=== PATIENT | female | born 1985 | race African-American/Black ===

== ENCOUNTER 2016-10-03 08:14 | Emergency (ER) | payer OTHER ==
[~2016-10-03] VITALS: Ht 165.1 cm; Wt 85.0 kg
[~2016-10-03 08:14] MED LIST: FLAG500T PO; IBUP600T26 PO; LEVA500T PO
[2016-10-03 08:18] VITALS: BP 118/80; PULSE 82; RESP 16; TEMP 98.2; O2SAT 100
[2016-10-03] MEDS ORDERED: SODIUM CHLOR 0.9% 1000 ML INJ 1,000 ML IV SCH (08:38)
[2016-10-03 08:40] VITALS: O2SAT 98
[2016-10-03] MEDS ORDERED: SODIUM CHLORIDE 0.9% FLUSH 5 ML FLUSH IVF PRN (08:45)
--- NOTE | 2016-10-03 08:45 | PD ---
HPI Chief Complaint: Chest Pain Time Seen by Provider: 08:26 Travel History International Travel<30 days: No Contact w/Intl Traveler<30days: No Traveled to known affect area: No History of Present Illness HPI Is a 31-year-old woman who presents to the emergency department complaining of chest pain is ongoing on and off for the past 6 days. States symptoms come and go, lasting about 30 minutes to a couple hours. She feels in the chest radiating to the right shoulder blade in the right arm. No recent upper respiratory infections. She'll the coughing this morning. She did not really notice an association with eating. No associated exertion. States she walks a couple miles every day and has not had any trouble with her exercise tolerance. No nausea or vomiting. No history of DVT or PE. No leg swelling. No history of heart or lung problems. States she had a heart murmur when she was little but hasn't heard anything about it since. Does have significant abdominal surgical history including a hysterectomy after uterine prolapse during delivery, followed by appendectomy. No other complaints. History Past Medical History Narrative Medical History of appendectomy, hysterectomy Tetanus Vaccination: < 5 Years Influenza Vaccination: Yes Menopausal: No : 2 Para: 2 Social History Alcohol Use: Yes (on occasion) Tobacco Use: No Allergies-Medications (Allergen,Severity, Reaction): Coded Allergies: Cipro (Unverified Allergy, Severe, 10/03/16) Reported Meds & Prescriptions Reported Meds & Active Scripts Active No Active Prescriptions or Reported Medications Review of Systems Except as stated in HPI: all other systems reviewed are Neg Physical Exam Narrative GENERAL: Well-appearing 31-year-old woman, no acute distress. SKIN: Warm and dry. HEAD: Atraumatic. Normocephalic. CARDIOVASCULAR: Regular rate and rhythm. No murmur appreciated. RESPIRATORY: No accessory muscle use. Clear to auscultation. Breath sounds equal bilaterally. GASTROINTESTINAL: Abdomen is obese, soft, with some epigastric/right upper quadrant tenderness and positive Neville sign. MUSCULOSKELETAL: No obvious deformities. No edema. NEUROLOGICAL: Awake and alert. No obvious cranial nerve deficits. Motor grossly within normal limits. Normal speech. PSYCHIATRIC: Appropriate mood and affect; insight and judgment normal. Data Data Last Documented VS Vital Signs Date Time Temp Pulse Resp B/P Pulse Ox O2 Delivery O2 Flow Rate FiO2 10/03/16 08:40 98 Room Air 10/03/16 08:27 78 20 10/03/16 08:18 98.2 118/80 Orders Electrocardiogram (10/03/16 ) Complete Blood Count With Diff (10/03/16 08:38) Comprehensive Metabolic Panel (10/03/16 08:38) Lipase (10/03/16 08:38) Us Abdomen Gallbladder (10/03/16 ) Iv Access Insert/Monitor (10/03/16 08:38) Ecg Monitoring (10/03/16 08:38) Oximetry (10/03/16 08:38) NPO (10/03/16 08:38) Sodium Chlor 0.9% 1000 Ml Inj (Ns 1000 M (10/03/16 08:38) Sodium Chloride 0.9% Flush (Ns Flush) (10/03/16 08:45) Chest, Single Ap (10/03/16 ) Labs Laboratory Tests Test 10/03/16 08:43 White Blood Count 7.2 TH/MM3 Red Blood Count 4.64 MIL/MM3 Hemoglobin 12.7 GM/DL Hematocrit 37.5 % Mean Corpuscular Volume 80.8 FL Mean Corpuscular Hemoglobin 27.4 PG Mean Corpuscular Hemoglobin 34.0 % Concent Red Cell Distribution Width 13.1 % Platelet Count 194 TH/MM3 Mean Platelet Volume 10.5 FL Neutrophils (%) (Auto) 68.4 % Lymphocytes (%) (Auto) 19.4 % Monocytes (%) (Auto) 8.2 % Eosinophils (%) (Auto) 3.5 % Basophils (%) (Auto) 0.5 % Neutrophils # (Auto) 4.9 TH/MM3 Lymphocytes # (Auto) 1.4 TH/MM3 Monocytes # (Auto) 0.6 TH/MM3 Eosinophils # (Auto) 0.3 TH/MM3 Basophils # (Auto) 0.0 TH/MM3 CBC Comment DIFF FINAL Differential Comment Sodium Level 140 MEQ/L Potassium Level 4.2 MEQ/L Chloride Level 105 MEQ/L Carbon Dioxide Level 25.7 MEQ/L Anion Gap 9 MEQ/L Blood Urea Nitrogen 10 MG/DL Creatinine 0.91 MG/DL Estimat Glomerular Filtration 87 ML/MIN Rate Random Glucose 97 MG/DL Calcium Level 8.4 MG/DL Total Bilirubin 0.3 MG/DL Aspartate Amino Transf 20 U/L (AST/SGOT) Alanine Aminotransferase 18 U/L (ALT/SGPT) Alkaline Phosphatase 80 U/L Total Protein 7.2 GM/DL Albumin 3.6 GM/DL Lipase 226 U/L [facility] Medical Decision Making Medical Screen Exam Complete: Yes Emergency Medical Condition: Yes Interpretation(s) My review of EKG: Normal sinus rhythm at a rate of 75, normal axis, normal pulse , no ischemia. LABS: CBC unremarkable. CMP unremarkable. Lipase normal. Chest x-ray negative Gallbladder ultrasound negative Differential Diagnosis Cholecystitis, cholelithiasis, PE, ACS, pancreatitis, other Narrative Course Medical decision making INITIAL: 31-year-old woman with chest pain rating to the right shoulder blade intermittently lasting 30 minutes to a couple hours for the past week or so. She has not noticed a clear association with eating but in retrospect did eat at a potluck last night and thinks it may be more fatty foods. She has right upper quadrant tenderness with a positive Neville's and a history suggestive of cholecystitis. We'll check ultrasound, labs, chest x-ray, EKG, reassess. FINAL: Workups unremarkable. Epigastric tenderness suggest probably gastritis. Still possible biliary colic. No evidence of heart or lung disease. We'll do a trial of ranitidine, outpatient follow-up. Diagnosis Primary Impression: Chest pain Qualified Code: R07.9 - Chest pain, unspecified type Additional Impression: Gastritis Qualified Code: K29.00 - Acute gastritis without hemorrhage, unspecified gastritis type Additional Instructions: Take ranitidine as prescribed. Follow-up with her primary doctor in 5-7 days. Return to the emergency department for any worsening chest pain or trouble breathing. Med/Other Pt SpecificInfo: Prescription(s) given Scripts Ranitidine 150 Mg Msh538 Mg PO BID #60 CAP Prov:Nehemiah Hunt MD 10/03/16 Disposition: 01 DISCHARGE HOME Condition: Stable Nehemiah Hunt MD Oct 03, 2016 08:45
[2016-10-03 08:53] LABS: AUTOMATED NEUTROPHIL # 4.9 TH/MM3 (1.8-7.7); BASOPHIL % 0.5 % (0.0-2.0); EOSINOPHIL # 0.3 TH/MM3 (0-0.4); EOSINOPHIL % 3.5 % (0.0-4.0); HEMATOCRIT 37.5 % (35.0-46.0); HEMO FLAGS DIFF FINAL; LYMPH % 19.4 % (9.0-44.0); LYMPHOCYTE # 1.4 TH/MM3 (1.0-4.8); MEAN CELL VOLUME 80.8 FL (80.0-100.0); MEAN CORPUSCULAR HEMOGLOBIN 27.4 PG (27.0-34.0); MONO % 8.2 % (0.0-8.0); NEUT % 68.4 % (16.0-70.0); PLATELET COUNT 194 TH/MM3 (150-450); RED BLOOD COUNT 4.64 MIL/MM3 (4.00-5.30); RED CELL DISTRIBUTION WIDTH 13.1 % (11.6-17.2); WHITE BLOOD COUNT 7.2 TH/MM3 (4.0-11.0)
--- NOTE | 2016-10-03 08:56 | RADRPT ---
EXAM DATE/TIME: 10/03/2016 08:50 [facility] COMPARISON: No previous studies available for comparison. INDICATIONS : Chest pain, short of breath MEDICAL HISTORY : None. SURGICAL HISTORY : None. ENCOUNTER: Initial ACUITY: 4 - 6 days PAIN SCORE: 3/10 LOCATION: Bilateral chest FINDINGS: Portable AP view of the chest demonstrates a normal-sized cardiac silhouette. No effusion, consolidat ion, or pneumothorax is visualized. The bones and soft tissues demonstrate no acute abnormality. CONCLUSION: No acute cardiopulmonary abnormality is identified. Dalton Lopez MD on October 03, 2016 at 8:54 Board Certified Radiologist. This report was verified electronically.
--- NOTE | 2016-10-03 09:17 | RADRPT ---
EXAM DATE/TIME: 10/03/2016 08:52 [facility] COMPARISON: CT ABDOMEN & PELVIS W CONTRAST, February 05, 2015, 22:08. INDICATIONS : Abdominal pain. MEDICAL HISTORY : Anemia. SURGICAL HISTORY : Appendectomy. Hysterectomy. ENCOUNTER: Initial ACUITY: 4-6 days PAIN SCORE: 4/10 LOCATION: Right upper quadrant MEASUREMENTS: LIVER: 15.6 cm length COMMON DUCT: 4 mm RIGHT KIDNEY: 9.5 x 3.5 x 3.8 cm FINDINGS: LIVER: Normal echotexture without focal lesion or ductal dilatation. COMMON DUCT: No intraluminal mass or stone visualized. GALLBLADDER: Contains no stones, demonstrates no wall thickening or pericholecystic fluid. PANCREAS: The visualized portions are within normal limits. RIGHT KIDNEY: No evidence of hydronephrosis, stone, or mass. CONCLUSION: Normal ultrasound. Dalton Lopez MD on October 03, 2016 at 9:15 Board Certified Radiologist. This report was verified electronically.
[2016-10-03 09:22] LABS: ALKALINE PHOSPHATASE 80 U/L (45-117); ALT (GPT) 18 U/L (10-53); ANION GAP 9 MEQ/L (5-15); AST (GOT) 20 U/L (15-37); BICARBONATE 25.7 MEQ/L (21.0-32.0); BLOOD UREA NITROGEN 10 MG/DL (7-18); CHLORIDE 105 MEQ/L (98-107); GLOMERULAR FILTRATION RATE 87 ML/MIN (>89); POTASSIUM 4.2 MEQ/L (3.5-5.1); SODIUM (NA) 140 MEQ/L (136-145); TOTAL BILIRUBIN ADULT 0.3 MG/DL (0.2-1.0)
[2016-10-03 09:30] VITALS: BP 117/67; PULSE 73; RESP 19; O2SAT 100
[2016-10-03] MEDS ORDERED: RANI150C PO (09:44)
[2016-10-03] MEDS ORDERED: RANITIDINE HCL 150 MG TAB PO ONE (09:45)
[2016-10-03] MEDS ORDERED: FAMOTIDINE 20 MG TAB PO ONE (10:15)
--- NOTE | 2016-10-04 10:06 | EKG ---
Date Performed: 10/03/2016 Time Performed: 08:32:15 PTAGE: 31 years EKG: Sinus rhythm NORMAL ECG NO PREVIOUS TRACING DOCTOR: Bharathi Olivo Interpretating Date/Time 10/04/2016 10:03:23
== END 2016-10-03 10:39 | disposition home or self-care (01) ==
LOC: NEPC 08:14
DX: R07.9 Chest pain, unspecified (principal); K29.00 Acute gastritis without bleeding
CPT/HCPCS: 71010; 76705; 80053; 83690; 85025; 93005; 96360; 99285; J7030

== ENCOUNTER 2017-01-12 20:16 | Emergency (ER) | payer OTHER ==
[~2017-01-12 20:16] MED LIST changes: -FLAG500T PO; -IBUP600T26 PO; -LEVA500T PO; +RANI150C PO
[2017-01-12 20:21] VITALS: BP 125/76; PULSE 80; RESP 18; TEMP 98.7; O2SAT 99
[2017-01-12] MEDS ORDERED: DICL75TA PO (21:21)
[2017-01-12] MEDS ORDERED: CYCL1TAB29 PO (21:21)
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
[2017-01-12] MEDS ORDERED: CYCLOBENZAPRINE HCL 10 MG TAB PO ONE (21:30)
[2017-01-12] MEDS ORDERED: IBUPROFEN 800 MG TAB PO ONE (21:30)
== END 2017-01-12 21:49 | disposition home or self-care (01) ==
LOC: NEPK 20:16
DX: M54.9 Dorsalgia, unspecified (principal); M54.2 Cervicalgia; V49.49XA Driver injured in collision with other motor vehicles in traffic accident, initial encounter; Y92.410 Unspecified street and highway as the place of occurrence of the external cause
CPT/HCPCS: 99284